=== PATIENT | male | born 1980 | race Caucasian/White ===

== ENCOUNTER 2020-10-17 04:35 | Observation (INO) | payer BC ==
--- NOTE | 2020-10-17 04:48 | ED ---
Abdominal Pain HPI - General Chief Complaint: Abdominal Pain Stated Complaint: ABD pain Time Seen by Provider: 10/17/20 04:48 Source: patient, RN notes reviewed, old records reviewed Mode of arrival: ambulatory Limitations: no limitations - History of Present Illness Initial Comments: This is a 40-year-old male DF no real significant medical history, patient comes for evaluation of epigastric right upper quadrant abdominal pain tenderness. Patient has had multiple frequent episodes of similar events. One episode of altered did and what happened while at [employer] event tonight. Pain is severe with nausea no actual vomiting no fevers. Patient has no prior surgical history. Patient has had here recently living with his brother is past from s tage IV colon cancer. Patient has never had a colonoscopy. Patient has not had anything to help with the pain. Pain currently is severe right upper quadrant MD Complaint: abdominal pain -: days(s) Location: RUQ Radiation: RUQ Migration to: no migration Severity: severe Severity scale (1-10): 8 Quality: cramping, stabbing Consistency: intermittent Worsens With: eating Associated Symptoms: nausea, vomiting, anorexia - Related Data Allergies Allergy/AdvReac Type Severity Reaction Status Date / Time No Known Allergies Allergy Verified 10/17/20 04:38 Review of Systems ROS Statement: Those systems with pertinent positive or pertinent negative responses have been documented in the HPI. ROS Other: All systems not noted in ROS Statement are negative. Past Medical History Past Medical History: No Reported History History of Any Multi-Drug Resistant Organisms: None Reported Additional Past Surgical History / Comment(s): vastectomy Past Psychological History: Anxiety, Depression Smoking Status: Current every day smoker Past Alcohol Use History: Occasional Past Drug Use History: None Reported General Exam Limitations: no limitations General appearance: alert, in no apparent distress Head exam: Present: atraumatic, normocephalic, normal inspection Eye exam: Present: normal appearance, PERRL, EOMI. Absent: scleral icterus, conjunctival injection, periorbital swelling ENT exam: Present: normal exam, mucous membranes moist Neck exam: Present: normal inspection. Absent: tenderness, meningismus, lymphadenopathy Respiratory exam: Present: normal lung sounds bilaterally. Absent: respiratory distress, wheezes, rales, rhonchi, stridor Cardiovascular Exam: Present: regular rate, normal rhythm, normal heart sounds. Absent: systolic murmur, diastolic murmur, rubs, gallop, clicks GI/Abdominal exam: Present: soft, tenderness (Right upper quadrant), normal bowel sounds. Absent: distended, guarding, rebound, rigid Extremities exam: Present: normal inspection, full ROM, normal capillary refill. Absent: tenderness, pedal edema, joint swelling, calf tenderness Back exam: Present: normal inspection Neurological exam: Present: alert, oriented X3, CN II-XII intact Psychiatric exam: Present: normal affect, normal mood Skin exam: Present: warm, dry, intact, normal color. Absent: rash Course Vital Signs 10/17/20 04:38 Temperature 98.1 F Pulse Rate 101 H Respiratory 18 Rate Blood Pressure 146/89 O2 Sat by Pulse 98 Oximetry - Reevaluation(s) Reevaluation #1: 10/17/20 06:27 Medical records reviewed Reevaluation #2: 10/17/20 06:27 patient still has pain here in the ER Reevaluation #3: 10/17/20 06:27 Patient is informed of results, questions are answered Reevaluation #4: 10/17/20 06:27 spoke with patient regarding plan of care, patient prefers to be admitted to the hospital for surgical evaluation - Consultations Consultation #1: Spoke with Dr. Harrison who will admit the patient Medical Decision Making - Medical Decision Making 40 male DF for evaluation positive colicystitis in symptoms and ultrasound. Patient will be admitted for surgical treatment - Lab Data Result diagrams: 10/17/20 05:10 10/17/20 05:10 Lab Results 10/17/20 10/17/20 Range/Units 05:10 05:10 WBC 8.1 (3.8-10.6) k/uL RBC 5.28 (4.30-5.90) m/uL Hgb 16.8 (13.0-17.5) gm/dL Hct 47.8 (39.0-53.0) % MCV 90.6 (80.0-100.0) fL MCH 31.7 (25.0-35.0) pg MCHC 35.0 (31.0-37.0) g/dL RDW 12.8 (11.5-15.5) % Plt Count 275 (150-450) k/uL MPV 6.6 Neutrophils % 72 % Lymphocytes % 22 % Monocytes % 4 % Eosinophils % 1 % Basophils % 0 % Neutrophils # 5.8 (1.3-7.7) k/uL Lymphocytes # 1.8 (1.0-4.8) k/uL Monocytes # 0.3 (0-1.0) k/uL Eosinophils # 0.1 (0-0.7) k/uL Basophils # 0.0 (0-0.2) k/uL Sodium 138 (137-145) mmol/L Potassium 4.5 (3.5-5.1) mmol/L Chloride 101 (98-107) mmol/L Carbon Dioxide 29 (22-30) mmol/L Anion Gap 8 mmol/L BUN 13 (9-20) mg/dL Creatinine 1.08 (0.66-1.25) mg/dL Est GFR (CKD-EPI)AfAm >90 (>60 ml/min/1.73 sqM) Est GFR (CKD-EPI)NonAf 85 (>60 ml/min/1.73 sqM) Glucose 111 H (74-99) mg/dL Calcium 9.4 (8.4-10.2) mg/dL Total Bilirubin 0.8 (0.2-1.3) mg/dL AST 32 (17-59) U/L ALT 39 (4-49) U/L Alkaline Phosphatase 109 (38-126) U/L Total Protein 8.0 (6.3-8.2) g/dL Albumin 4.6 (3.5-5.0) g/dL Amylase 75 (30-110) U/L Lipase 78 (23-300) U/L - Radiology Data Radiology results: report reviewed (Ultrasound right upper quadrant cholecys titis), image reviewed Disposition Clinical Impression: Abdominal pain, Acute cholecystitis Disposition: ADMITTED IP TO THIS HOSP Condition: Fair Is patient prescribed a controlled substance at d/c from ED?: No
[2020-10-17] MEDS ORDERED: SODIUM CHLORIDE 0.9% 1,000 ML IV STA (05:07)
[2020-10-17] MEDS ORDERED: MORPHINE SULFATE 4 MG/ML SYRINGE IV STA (05:07)
[2020-10-17] MEDS ORDERED: KETOROLAC 15 MG/ML 1 ML VIAL IVP STA (05:07)
[2020-10-17 05:28] LABS: Basophils % (A) 0 %; Eosinophils # (A) 0.1 k/uL (0-0.7); Eosinophils % (A) 1 %; HCT 47.8 % (39.0-53.0); HGB 16.8 gm/dL (13.0-17.5); Lymphocytes # (A) 1.8 k/uL (1.0-4.8); Lymphocytes % (A) 22 %; MCH 31.7 pg (25.0-35.0); MCV 90.6 fL (80.0-100.0); Mean Platelet Volume 6.6; Monocytes # (A) 0.3 k/uL (0-1.0); Monocytes % (A) 4 %; Neutrophils # (A) 5.8 k/uL (1.3-7.7); Neutrophils % (A) 72 %; Platelet Count 275 k/uL (150-450); RBC 5.28 m/uL (4.30-5.90); RDW 12.8 % (11.5-15.5); WBC 8.1 k/uL (3.8-10.6)
[2020-10-17 05:40] LABS: ALT 39 U/L (4-49); AST 32 U/L (17-59); African American GFR (CKD) >90 (>60 ml/min/1.73 sqM); Albumin 4.6 g/dL (3.5-5.0); Alkaline Phosphatase 109 U/L (38-126); Amylase 75 U/L (30-110); Anion Gap 8 mmol/L; Blood Urea Nitrogen 13 mg/dL (9-20); Calcium 9.4 mg/dL (8.4-10.2); Carbon Dioxide 29 mmol/L (22-30); Chloride 101 mmol/L (98-107); Glucose 111 mg/dL (74-99); Lipase 78 U/L (23-300); Non-African American GFR(CKD) 85 (>60 ml/min/1.73 sqM); Potassium 4.5 mmol/L (3.5-5.1); Sodium 138 mmol/L (137-145); Total Bilirubin 0.8 mg/dL (0.2-1.3)
--- NOTE | 2020-10-17 06:01 | US ---
EXAM: US Abdomen Limited, Right Upper Quadrant CLINICAL HISTORY: ITS.REASON US Reason: pain TECHNIQUE: Real-time ultrasound of the right upper quadrant with image documentation. COMPARISON: No relevant prior studies available. FINDINGS: Limited due to overlying bowel gas. Liver: The liver measures 16.3 cm in length. Echogenic parenchyma, can be seen with fatty infiltration. Gallbladder: Cholelithiasis. Mild nonspecific gallbladder wall thickening measuring 3.7 mm.. Negative sonographic Ruby's sign. Common bile duct: The common bile duct measures 5 mm. Pancreas: Not well visualized. Right kidney: The right kidney measures 10.6 cm in length. No significant hydronephrosis. IMPRESSION: 1. Cholelithiasis with mild gallbladder wall thickening. Correlate clinically regarding cholecystitis. 2. Possible fatty liver.
[2020-10-17] MEDS ORDERED: SODIUM CHLORIDE 0.9% 1,000 ML IV ONE (06:11)
[2020-10-17] MEDS ORDERED: HYDROmorphone 1 MG/ML 1 ML SYRINGE IVP STA (06:12)
[2020-10-17] MEDS ORDERED: PANTOPRAZOLE 40 MG/10 ML VIAL IVP STA (06:12)
[2020-10-17] MEDS ORDERED: AMPICILLIN-SULBACTAM 3 GM in SODIUM CHLORIDE 0.9% 100 ML IVPB STA (06:12)
[2020-10-17] MEDS ORDERED: ONDANSETRON 4 MG/2 ML VIAL IVP STA (06:12)
[2020-10-17] MEDS ORDERED: ONDANSETRON 4 MG/2 ML VIAL IVP PRN (06:12)
--- NOTE | 2020-10-17 13:41 | P.GSHP ---
History of Present Illness H&P Date: 10/17/20 40-year-old male presented to the emergency department with complaints of abdominal pain in the right upper quadrant and epigastrium.He states that this pain started all of a sudden last night and did create some nausea as well. Denies any emesis episodes. He states that he had a similar episode to this approximately 1 week ago after eating fast food. He denies any change in bowel function.Ultrasound was performed in the emergency department and patient was found to have cholelithiasis with gallbladder wall thickening concerning for cholecystitis. After receiving pain medication he states his pain has improved slightly. - Review of Systems All systems: negative Past Medical History Past Medical History: No Reported History Additional Past Medical History / Comment(s): bulding discs in back. History of Any Multi-Drug Resistant Organisms: None Reported Past Surgical History: No Surgical Hx Reported Additional Past Surgical History / Comment(s): vastectomy, widson teeth removed. Past Anesthesia/Blood Transfusion Reactions: No Reported Reaction Past Psychological History: Anxiety, Depression, PTSD Smoking Status: Current some day smoker Past Alcohol Use History: Occasional Past Drug Use History: None Reported Medications and Allergies Home Medications Medication Instructions Recorded Confirmed Type No Known Home Medications 10/17/20 10/17/20 History Allergies Allergy/AdvReac Type Severity Reaction Status Date / Time No Known Allergies Allergy Verified 10/17/20 07:15 Surgical - Exam Osteopathic Statement: *. No significant issues noted on an osteopathic structural exam other than those noted in the History and Physical/Consult. Vital Signs Temp Pulse Resp BP Pulse Ox 98.1 F 101 H 18 146/89 98 10/17/20 04:38 10/17/20 04:38 10/17/20 04:38 10/17/20 04:38 10/17/20 04:38 - General well developed, well nourished, no distress - Eyes normal ocular movement - ENT no hearing loss - Neck trachea midline - Respiratory normal respiratory effort - Abdomen Soft, some tenderness to deep palpation in the right upper quadrant, nondistended, no rebound, no guarding - Psychiatric oriented to time, oriented to person, oriented to place Results - Labs 10/17/20 05:10 10/17/20 05:10 Abnormal Lab Results - Last 24 Hours (Table) 10/17/20 Range/Units 05:10 Glucose 111 H (74-99) mg/dL Diabetes panel 10/17/20 Range/Units 05:10 Sodium 138 (137-145) mmol/L Potassium 4.5 (3.5-5.1) mmol/L Chloride 101 (98-107) mmol/L Carbon Dioxide 29 (22-30) mmol/L BUN 13 (9-20) mg/dL Creatinine 1.08 (0.66-1.25) mg/dL Glucose 111 H (74-99) mg/dL Calcium 9.4 (8.4-10.2) mg/dL AST 32 (17-59) U/L ALT 39 (4-49) U/L Alkaline Phosphatase 109 (38-126) U/L Total Protein 8.0 (6.3-8.2) g/dL Albumin 4.6 (3.5-5.0) g/dL Calcium panel 10/17/20 Range/Units 05:10 Calcium 9.4 (8.4-10.2) mg/dL Albumin 4.6 (3.5-5.0) g/dL Pituitary panel 10/17/20 Range/Units 05:10 Sodium 138 (137-145) mmol/L Potassium 4.5 (3.5-5.1) mmol/L Chloride 101 (98-107) mmol/L Carbon Dioxide 29 (22-30) mmol/L BUN 13 (9-20) mg/dL Creatinine 1.08 (0.66-1.25) mg/dL Glucose 111 H (74-99) mg/dL Calcium 9.4 (8.4-10.2) mg/dL Adrenal panel 10/17/20 Range/Units 05:10 Sodium 138 (137-145) mmol/L Potassium 4.5 (3.5-5.1) mmol/L Chloride 101 (98-107) mmol/L Carbon Dioxide 29 (22-30) mmol/L BUN 13 (9-20) mg/dL Creatinine 1.08 (0.66-1.25) mg/dL Glucose 111 H (74-99) mg/dL Calcium 9.4 (8.4-10.2) mg/dL Total Bilirubin 0.8 (0.2-1.3) mg/dL AST 32 (17-59) U/L ALT 39 (4-49) U/L Alkaline Phosphatase 109 (38-126) U/L Total Protein 8.0 (6.3-8.2) g/dL Albumin 4.6 (3.5-5.0) g/dL - Imaging US - abdomen: report reviewed, image reviewed Assessment and Plan Plan: 40-year-old male presents to the emergency department with diagnosis of cholecystitis secondary to cholelithiasis. Patient has been started on IV antibiotics. We will keep the patient on clear liquid diet with n.p.o. status after midnight. Plan is for laparoscopic cholecystectomy. Currently, case is scheduled for 1:30 PM [facility] based on OR scheduling. Continue pain control as necessary.
[2020-10-17] MEDS: AMPICILLIN-SULBACTAM 3 GM in SODIUM CHLORIDE 0.9% 100 ML IVPB SCH (15:56)
[2020-10-17] MEDS: HEPARIN SODIUM,PORCINE 5,000 UNIT/ML 1 ML VIAL SQ SCH (15:57)
[2020-10-17 16:17] VITALS: RESP 16
[2020-10-17] MEDS: HYDROmorphone 1 MG/ML 1 ML SYRINGE IVP PRN (20:22)
[2020-10-18] MEDS: AMPICILLIN-SULBACTAM 3 GM in SODIUM CHLORIDE 0.9% 100 ML IVPB SCH ×4 (00:39→22:59)
[2020-10-18] MEDS: HEPARIN SODIUM,PORCINE 5,000 UNIT/ML 1 ML VIAL SQ SCH ×4 (00:39→23:04)
[2020-10-18] MEDS ORDERED: fentaNYL (PF) 50 MCG/ML 2 ML AMP IV PRN (07:00)
[2020-10-18] MEDS: LACTATED RINGERS 1,000 ML IV SCH ×2 (09:17→16:38)
[2020-10-18] MEDS: HYDROmorphone 1 MG/ML 1 ML SYRINGE IVP PRN (11:52)
[2020-10-18] MEDS ORDERED: IV FLUID CONTINUATION 900 ML IV ONE (13:44)
[2020-10-18] MEDS ORDERED: ONDANSETRON 4 MG/2 ML VIAL IVP ONE (13:47)
[2020-10-18] MEDS ORDERED: DEXAMETHASONE SOD PHOSPHATE 4 MG/ML 1 ML VIAL IV ONE (13:48)
[2020-10-18] MEDS ORDERED: BUPIVACAINE (PF) 0.5% 30 ML VIAL SQ ONE ×2 (14:14)
[2020-10-18] MEDS ORDERED: LACTATED RINGERS 1,000 ML IV ONE (14:51)
[2020-10-18] MEDS ORDERED: BACITRACIN ZINC 500 UNIT/GM OINT 28.4 GM TUBE TOPICAL ONE (15:05)
--- NOTE | 2020-10-18 15:22 | P.OP ---
Date of Procedure: 10/18/20 Preoperative Diagnosis: Acute cholecystitis Cholelithiasis Postoperative Diagnosis: Acute cholecystitis Bertha lithiasis Procedure(s) Performed: Laparoscopic cholecystectomy Anesthesia: CHIN Surgeon: Keke Harrison Pathology: other (Gallbladder and contents) Condition: stable Disposition: floor Indications for Procedure: 40-year-old male presented to the emergency room with complaints of abdominal pain. On workup he was found to have acute cholecystitis. He was started on IV antibiotics and kept nothing by mouth with plan for left scopic cholecystectomy. Risks, benefits and alternatives were provided to the patient. He did provide consent prior to attending the operating suite. Operative Findings: Distended, inflamed and edematous gallbladder Cholelithiasis Description of Procedure: The patient was brought into the operating suite and placed supine on the operating table. Sedation was provided by anesthesia and the patient underwent endotracheal intubation. The patient was prepped and draped in regular sterile fashion. An umbilical incision was made as the patient did have a small umbilical hernia. The trocar was passed through the hernia defect and pneumoperitoneum was achieved. 3 additional 5 mm ports were placed. 2 were placed in the right upper quadrant and one was placed in the subxiphoid region. The gallbladder was then grasped and elevated and retracted. The peritoneum was then peeled from the infundibulum of the gallbladder. The gallbladder was noted to be quite edematous and inflamed with large cholelithiasis. Dissection was carried to skeletonize the cystic duct. 2 clips were placed proximally and one was placed distally and the cystic duct was ligated. The cystic artery was skeletonized in a similar fashion and ligated in a similar fashion. At this point cautery was used to dissect the gallbladder from the gallbladder fossa on the liver bed. The gallbladder was then placed in an Endo Catch bag and removed from the abdomen. Irrigation was then used in the right upper quadrant and suctioned. The 12 mm trocar site was then closed with interrupted 0 Vicryl suture. This was closed as a previous hernia site. Pneumoperitoneum was then relieved. All trochars removed from the abdomen. All skin incisions were also 4-0 Vicryl subcuticular suture. Sterile dressing was applied. The patient was awakened in the operating suite and taken to postanesthesia care unit in stable condition.
[2020-10-18] MEDS: HYDROmorphone 0.5 MG/0.5 ML SYRINGE IVP PRN ×4 (15:35→23:01)
[2020-10-18] MEDS: SODIUM CHLORIDE 0.9% 1,000 ML IV SCH ×2 (16:36→22:59)
[2020-10-18] MEDS: KETOROLAC 15 MG/ML 1 ML VIAL IVP SCH ×2 (18:01→23:00)
[2020-10-19] MEDS: HYDROmorphone 0.5 MG/0.5 ML SYRINGE IVP PRN ×2 (03:27→05:43)
[2020-10-19] MEDS: KETOROLAC 15 MG/ML 1 ML VIAL IVP SCH ×2 (05:42→12:14)
[2020-10-19] MEDS: SODIUM CHLORIDE 0.9% 1,000 ML IV SCH ×2 (07:06→15:43)
[2020-10-19 07:12] VITALS: BP 113/70; PULSE 96; TEMP 98.9
[2020-10-19] MEDS ORDERED: HYDROcodone/APAP 5-325MG 1 EACH TAB PO PRN (07:40)
[2020-10-19 08:20] LABS: Basophils % (A) 0 %; Eosinophils % (A) 0 %; HCT 39.3 % (39.0-53.0); HGB 14.2 gm/dL (13.0-17.5); Lymphocytes # (A) 1.5 k/uL (1.0-4.8); Lymphocytes % (A) 14 %; MCH 32.6 pg (25.0-35.0); MCHC 36.1 g/dL (31.0-37.0); MCV 90.3 fL (80.0-100.0); Mean Platelet Volume 6.8; Monocytes # (A) 0.6 k/uL (0-1.0); Monocytes % (A) 6 %; Neutrophils # (A) 8.4 k/uL (1.3-7.7); Neutrophils % (A) 79 %; Platelet Count 234 k/uL (150-450); RBC 4.35 m/uL (4.30-5.90); RDW 11.9 % (11.5-15.5); WBC 10.7 k/uL (3.8-10.6)
[2020-10-19 08:29] LABS: ALT 59 U/L (4-49); AST 52 U/L (17-59); African American GFR (CKD) >90 (>60 ml/min/1.73 sqM); Albumin 3.3 g/dL (3.5-5.0); Albumin/Globulin Ratio 1.1; Alkaline Phosphatase 57 U/L (38-126); Anion Gap 3 mmol/L; Blood Urea Nitrogen 6 mg/dL (9-20); Calcium 8.3 mg/dL (8.4-10.2); Carbon Dioxide 29 mmol/L (22-30); Chloride 103 mmol/L (98-107); Globulin 2.9 g/dL; Glucose 98 mg/dL (74-99); Non-African American GFR(CKD) >90 (>60 ml/min/1.73 sqM); Potassium 4.1 mmol/L (3.5-5.1); Sodium 135 mmol/L (137-145); Total Bilirubin 0.9 mg/dL (0.2-1.3); Total Protein 6.2 g/dL (6.3-8.2)
[2020-10-19] MEDS: HEPARIN SODIUM,PORCINE 5,000 UNIT/ML 1 ML VIAL SQ SCH ×2 (08:33→17:07)
[2020-10-19] MEDS: AMPICILLIN-SULBACTAM 3 GM in SODIUM CHLORIDE 0.9% 100 ML IVPB SCH ×2 (08:33→17:06)
--- NOTE | 2020-10-19 11:57 | P.DS ---
Providers Date of admission: 10/17/20 06:11 Expected date of discharge: 10/19/20 Attending physician: Keke Harrison DO Primary care physician: Stated None Hospital Course: 30-year-old male presented to the emergency department with severe right upper quadrant pain. On workup, he was found to have acute cholecystitis. This, he was admitted and started on IV antibiotics. He did undergo laparoscopic cholecystectomy. Postoperatively, his pain level improved. His diet was advanced and tolerated. And laboratory values were assessed. He is surgically stable for discharge. The patient states that he is in [employer] and is required to return to service in the next week. In the meantime, he is working a job that will require him to return to work tomorrow. He states he needs to do this for [employer]. I did recommend no weight lifting greater than 5 pounds and 2 continue antibiotics. He was instructed that for medical purposes it would not be in his best interest to return to work so soon. He is aware. Procedures: Laparoscopic cholecystectomy Patient Condition at Discharge: Fair Plan - Discharge Summary Discharge Rx Participant: No New Discharge Prescriptions: New Amoxic-Pot Clav 500-125 mg [Augmentin 500-125 mg] 1 tab PO Q12HR 7 Days #14 tab Ibuprofen [Motrin] 600 mg PO Q6HR PRN #24 tab PRN Reason: Pain HYDROcodone/APAP 5-325MG [[place] 5-325] 1 each PO Q6HR PRN #10 tab PRN Reason: Pain Discharge Medication List Amoxic-Pot Clav 500-125 mg [Augmentin 500-125 mg] 1 tab PO Q12HR 7 Days #14 tab 10/19/20 [Rx] HYDROcodone/APAP 5-325MG [[place] 5-325] 1 each PO Q6HR PRN #10 tab 10/19/20 [Rx] Ibuprofen [Motrin] 600 mg PO Q6HR PRN #24 tab 10/19/20 [Rx] Follow up Appointment(s)/Referral(s): None,Stated [Primary Care Provider] - 1-2 days Keke Harrison DO [Doctor of Osteopathic Medicine] - 10/24/20 Patient Instructions/Handouts: Laparoscopic Cholecystectomy (DC) Activity/Diet/Wound Care/Special Instructions: No lifting greater than 5 pounds for 2 weeks Apply bandages to wounds as necessary Stay on a low-fat diet for 4 weeks Discharge Disposition: HOME SELF-CARE
== END 2020-10-19 17:47 | disposition home or self-care (01) ==
LOC: EC 04:35 → 6NMEDSUR 06:11
PROVIDERS: ADMIT Surgery; ATTEND Surgery
DX: K80.12 Calculus of gallbladder with acute and chronic cholecystitis without obstruction (principal); K21.9 Gastro-esophageal reflux disease without esophagitis; F32.9 Major depressive disorder, single episode, unspecified; F43.10 Post-traumatic stress disorder, unspecified; F17.200 Nicotine dependence, unspecified, uncomplicated; F41.9 Anxiety disorder, unspecified; Z98.52 Vasectomy status; Z80.0 Family history of malignant neoplasm of digestive organs
CPT/HCPCS: 96376 ×2; 96361; 96374; 96375; 99285; 36415; 88304; 80053 ×2; 82150; 83690; 85025 ×2; 87635; 76705; 47562; G0378 ×3; J2270; J1644 ×3; J1100; J2405 ×2; J1170 ×4; J0295 ×3; J1885 ×3; C9113